=== PATIENT | female | born 1990 | race Caucasian/White ===

== ENCOUNTER 2018-08-27 01:07 | Inpatient (IN) | payer OTHER ==
[2018-08-27] MEDS ORDERED: LACTATED RINGER'S 1,000 ML IV (02:13)
[2018-08-27] MEDS: LACTATED RINGER'S 1,000 ML IV* ×3 (02:27→08:48)
[2018-08-27] MEDS ORDERED: LIDOCAINE 1% (MPF) 30 ML INJ INJ (02:30)
[2018-08-27] MEDS ORDERED: METHYLERGONOVINE 0.2 MG INJ IM ×2 (02:30→17:30)
[2018-08-27] MEDS ORDERED: CARBOPROST 250 MCG INJ IM ×2 (02:30→17:30)
[2018-08-27] MEDS ORDERED: MISOPROSTOL 200 MCG TAB PR ×2 (02:30→17:30)
[2018-08-27] MEDS ORDERED: IBUPROFEN 600 MG TAB PO (02:30)
[2018-08-27] MEDS ORDERED: OXYTOCIN 30 UNITS/LR 500 ML IV ×3 (02:30→17:30)
[2018-08-27] MEDS ORDERED: BUTORPHANOL 2 MG INJ IV (02:30)
[2018-08-27 03:25] LABS: ADD MAN DIFF? NO; BASOPHILS % 0.3 % (0.0-2.0); EOSINOPHILS # 0.1 10^3/ul (0.0-0.5); EOSINOPHILS % 1.4 % (0.0-7.0); HEMATOCRIT 36.4 % (37.0-47.0); HEMOGLOBIN 12.2 g/dl (12.0-16.0); LYMPHOCYTES # 1.5 10^3/ul (0.8-2.9); LYMPHOCYTES % 18.3 % (15.0-51.0); MEAN CORPUSCULAR HEMOGLOBIN 33.3 pg (29.0-33.0); MEAN CORPUSCULAR HGB CONC 33.5 g/dl (32.0-37.0); MEAN CORPUSCULAR VOLUME 99.5 fl (82.0-101.0); MEAN PLATELET VOLUME 10.4 fl (7.4-10.4); MONOCYTE # 0.5 10^3/ul (0.3-0.9); MONOCYTES % 6.3 % (0.0-11.0); NEUTROPHIL # 5.9 10^3/ul (1.6-7.5); NEUTROPHILS % 73.3 % (39.0-77.0); PLATELET COUNT 235 10^3/UL (140-415); RED BLOOD COUNT 3.66 10^6/ul (4.20-5.40); RED CELL DISTRIBUTION WIDTH 13.4 % (11.5-14.5)
[2018-08-27 04:00] LABS: INR 0.94; PROTIME 12.7 Sec (11.9-14.9)
[2018-08-27 04:01] LABS: PARTIAL THROMBOPLASTIN TIME 33.1 Sec (23.0-35.0)
[2018-08-27] MEDS ORDERED: FENTAnyl 2MCG/ML-ROPIV 0.2% 100 ML (04:20)
[2018-08-27] MEDS ORDERED: DIPHENHYDRAMINE 50 MG INJ IV (04:30)
[2018-08-27] MEDS ORDERED: FENTAnyl 2MCG/ML-ROPIV 0.2% 100 ML BAG EPI (04:30)
[2018-08-27] MEDS ORDERED: ONDANSETRON 4 MG INJ IV (04:30)
[2018-08-27] MEDS ORDERED: NALOXONE (0.4 MG/ML) INJ IV (04:30)
[2018-08-27 04:52] LABS: HEPATITIS B SURFACE ANTIGEN NEGATIVE (NEGATIVE)
[2018-08-27] MEDS ORDERED: MINERAL OIL LIGHT 10 ML VIAL TOP (06:30)
[2018-08-27] MEDS: OXYTOCIN 30 UNITS/LR 500 ML IV ×2 (08:51→12:45)
[2018-08-27 15:24] LABS: RAPID PLASMA REAGIN NONREACTIVE (NR)
[2018-08-27] MEDS ORDERED: ZOLPIDEM 5 MG TAB PO (17:30)
[2018-08-27] MEDS ORDERED: OXYCODONE/ASPIRIN (4.88/325) TAB PO ×2 (17:30)
[2018-08-27] MEDS: BENZOCAINE 20% 56 ML SPRAY TOP (18:14)
[2018-08-27] MEDS: WITCH HAZEL/GLYCERIN PAD PR (18:15)
[2018-08-27] MEDS: LANOLIN 7 GM TUBE TOP (18:15)
[2018-08-27] MEDS: IBUPROFEN 600 MG TAB PO (18:15)
[2018-08-27] MEDS: SENNA/DOCUSATE NA (8.6MG/50MG) TAB PO (21:19)
[2018-08-28] MEDS: IBUPROFEN 600 MG TAB PO ×5 (00:16→23:35)
[2018-08-28] MEDS: SENNA/DOCUSATE NA (8.6MG/50MG) TAB PO ×2 (08:58→21:32)
[2018-08-28 09:24] LABS: ADD MAN DIFF? NO
[2018-08-28 09:28] LABS: BASOPHILS % 0.3 % (0.0-2.0); EOSINOPHILS # 0.1 10^3/ul (0.0-0.5); EOSINOPHILS % 1.6 % (0.0-7.0); HEMATOCRIT 33.6 % (37.0-47.0); HEMOGLOBIN 11.1 g/dl (12.0-16.0); LYMPHOCYTES # 1.6 10^3/ul (0.8-2.9); LYMPHOCYTES % 19.9 % (15.0-51.0); MEAN CORPUSCULAR HEMOGLOBIN 33.4 pg (29.0-33.0); MEAN CORPUSCULAR VOLUME 101.2 fl (82.0-101.0); MEAN PLATELET VOLUME 10.1 fl (7.4-10.4); MONOCYTE # 0.6 10^3/ul (0.3-0.9); MONOCYTES % 7.5 % (0.0-11.0); NEUTROPHIL # 5.6 10^3/ul (1.6-7.5); NEUTROPHILS % 70.4 % (39.0-77.0); PLATELET COUNT 186 10^3/UL (140-415); RED BLOOD COUNT 3.32 10^6/ul (4.20-5.40); RED CELL DISTRIBUTION WIDTH 13.6 % (11.5-14.5)
[2018-08-28 09:28] LABS: WHITE BLOOD COUNT 7.9 10^3/ul (4.8-10.8)
[2018-08-28 19:46] LABS: FLUORESCENT TREPONEMAL AB NON-REACTIVE (NON-REACTIVE)
[2018-08-29] MEDS: IBUPROFEN 600 MG TAB PO ×2 (05:42→12:03)
[2018-08-29] MEDS: SENNA/DOCUSATE NA (8.6MG/50MG) TAB PO (12:03)
[2018-08-29] MEDS: DIPHTH/TET/ACEL PERTUSS (ADULT) 0.5 ML VIAL IM* (12:10)
== END 2018-08-29 14:55 | disposition home or self-care (01) | DRG 807 ==
LOC: OBT 01:07 → L-D 01:08 → OBT 02:08 → L-D 02:08 → PP1 14:21
PROVIDERS: Obstetrics & Gynecology
PROC: 10E0XZZ Delivery of Products of Conception, External Approach (ICD-10-PCS; principal; 2018-08-27)
DX: O99.214 Obesity complicating childbirth (principal); E66.01 Morbid (severe) obesity due to excess calories; Z37.0 Single live birth; Z3A.39 39 weeks gestation of pregnancy
CPT/HCPCS: 62319; 85025; 85610; 85730; 86592; 86850; 86900; 86901; 87285; 87340; 90686; 90715; 99464